=== PATIENT | male | born 1995 | race Two or more races ===

== ENCOUNTER 2018-04-01 12:23 | Outpatient (CLI) | payer OTHER ==
[2018-04-01] MEDS ORDERED: BUFFERED LIDOCAINE 10 ML SYRINGE ONE (12:33)
[2018-04-01] MEDS ORDERED: IOTHALAMATE MEGLUMINE 50 ML VIAL ONE (12:34)
[2018-04-01] MEDS ORDERED: GADOPENTETATE DIMEGLUMINE 5 ML VIAL IVP ONE ×2 (12:34→13:35)
[2018-04-01] MEDS ORDERED: IOTHALAMATE MEGLUMINE 50 ML VIAL IVP ONE (13:35)
[2018-04-01] MEDS: BUFFERED LIDOCAINE 10 ML SYRINGE IU ONE (13:38)
--- NOTE | 2018-04-01 15:07 | XRAY Report ---
Reason: PAIN IN RIGHT WRIST Procedure Date: 04/01/2018 Accession Number: [id number] / [id number] Procedure: FL - Arthrogram Needle Placement CPT Code: FULL RESULT: EXAM: RIGHT WRIST ARTHROGRAPHIC INJECTION WITH FLUOROSCOPIC GUIDANCE EXAM DATE: 04/01/2018 01:16 PM. CLINICAL HISTORY: Pain in right wrist. COMPARISON: None. TECHNIQUE: The risks, benefits, and alternatives of the procedure were discussed with the patient. All questions were answered. Written and verbal consent were obtained. The radiocarpal joint was marked under fluoroscopy and prepped and draped in a sterile manner. Local anesthesia was performed with 1% lidocaine. A 25-gauge needle was then inserted into the radiocarpal joint. 2 mL of a solution containing 25% 1% lidocaine, 25% iodinated contrast, and a 1:200 dilution of gadolinium contrast in sterile saline was then injected. The needle was removed without immediate complication. Other: None. Fluoroscopy Time: 0.1 minutes. Number of Images: 5. FINDINGS: Bones and joints: No fracture or subluxation. Injection: Fluoroscopic images demonstrate needle placement and contrast in the radiocarpal joint. Contrast is seen freely migrating towards the ulna styloid. IMPRESSION: Successful fluoroscopically guided arthrographic injection of the wrist. [facility]
--- NOTE | 2018-04-02 08:44 | MRI Report ---
Reason: PAIN IN RIGHT WRIST Procedure Date: 04/01/2018 Accession Number: [id number] / [id number] Procedure: MRI - Arthrogram Wrist RT CPT Code: FULL RESULT: EXAM: RIGHT WRIST MRI ARTHROGRAM WITH CONTRAST EXAM DATE: 04/01/2018 01:24 PM. CLINICAL HISTORY: Pain in right wrist. COMPARISON: None. TECHNIQUE: Multiplanar, multisequence T1-weighted and fluid-sensitive sequences of the wrist after an arthrographic injection of dilute gadolinium, dictated under a separate exam. Other: None. FINDINGS: Bones: There is a tiny amount of cystic change seen in the volar aspect of the capitate. No fracture lines. Focal bone island also seen in the central lunate. Series 1001 image 13 Cartilage: The articular cartilage is unremarkable. The triangular fibrocartilage complex is unremarkable. Ligaments: The scapholunate and lunotriquetral ligaments are intact. The visualized other intrinsic, extrinsic and collateral ligaments are unremarkable. Tendons: The extensor compartments I through and flexor tendons are unremarkable. Small amount of contrast material is seen in the second extensor compartment, thought to be an artifact of injections rather than pathology. Musculature: No edema or fatty atrophy. Other: The contents of the carpal tunnel, including the median nerve, are unremarkable. Guyons canal is unremarkable. No ganglion cysts. The subcutaneous tissues are unremarkable. IMPRESSION: 1. Small amount of cystic change seen in the volar aspect of the capitate, of doubtful consequence. Benign bone alignment in the lunate. 2. TFCC appears intact. Scapholunate and lunotriquetral ligaments are also unremarkable. Normal joint alignment. No loose bodies. No masses. 3. Overall, benign wrist MRI arthrogram. No tears, no fractures. [facility] MUSCULOSKELETAL RADIOLOGY SECTION
== END 2018-04-01 12:24 | disposition home or self-care (01) ==
LOC: DI 12:23
PROVIDERS: ATTEND Physician Assistant
DX: M25.531 Pain in right wrist (principal)
CPT/HCPCS: 25246; 73222; 77002; Q9961

== ENCOUNTER 2020-09-28 15:02 | Outpatient (CLI) | payer OTHER ==
--- NOTE | 2020-09-28 17:07 | MRI Report ---
PROCEDURE: Shoulder RT W/O INDICATIONS: PAIN IN RIGHT SHOULDER TECHNIQUE: Noncontrast oblique coronal T2 fast spin echo with fat saturation, oblique sagittal T1 spin echo and T2 fast spin echo with fat saturation, axial T1 spin echo and T2 fast spin echo with fat saturation t hrough the shoulder. COMPARISON: None. FINDINGS: Image quality: Excellent. Rotator cuff: Tendinosis and low-grade articular and bursal surface partial-thickness tear involving distal supraspinatus at its insertion on humeral head extending to musculotendinous junction is seen. Distal infraspinatus and subscapularis tendinosis are also seen. No full-thickness rotator cuff tend on rupture. No rotator cuff muscle atrophy on sagittal images. Bones and bursae: No bone marrow contusions or fractures. Mild acromioclavicular joint osteophytic c hanges are seen with small inferior marginal osteophyte formation depressing on musculotendinous junc tion of supraspinatus. There is small amount of joint fluid and subacromial subdeltoid bursal fluid. Capsule and soft tissues: In the absence of intra-articular contrast, the labrum and glenohumeral li gaments appear intact. The long head of the biceps tendon demonstrates normal location and morpholog y. The rotator interval appears normal, without fibrosis. The coracohumeral ligament is normal in t hickness. IMPRESSION: 1. Tendinosis and low-grade articular and bursal surface partial-thickness tear involving distal supr aspinatus extending to musculotendinous junction. Distal infraspinatus and subscapularis tendinosis. No full-thickness rotator cuff tendon rupture. 2. Mild acromioclavicular joint osteoarthritis. No fracture or dislocation. Small amount of joint flu id and subacromial subdeltoid bursal fluid. 3. No gross focal labral tear. Reviewed by: Musa Arvizu MD on 09/28/2020 5:06 PM PDT Approved by: Musa Arvizu MD on 09/28/2020 5:06 PM PDT Station ID: [id number]
== END 2020-09-28 15:03 | disposition home or self-care (01) ==
LOC: DI 15:02
PROVIDERS: ATTEND Nurse Practitioner Family
DX: M75.111 Incomplete rotator cuff tear or rupture of right shoulder, not specified as traumatic (principal); M19.011 Primary osteoarthritis, right shoulder